=== PATIENT | female | born 1970 | race Caucasian/White ===

== ENCOUNTER 2018-06-01 10:57 | Day surgery (SDC) | payer BC ==
[~2018-06-01] VITALS: Ht 157.5 cm; Wt 93.0 kg
[~2018-06-01 10:57] MED LIST: LR 1,000 ML IV ONE; MELA10CA PO; RANI15TA PO; ZOLO25TA PO; ZYRT10CA5 PO
[2018-06-01 11:43] LABS: URINE PREG TEST NEGATIVE (NEGATIVE)
[2018-06-01] MEDS ORDERED: SCOPOLAMINE 1MG TRANSDERMAL PATCH As Ordered ONE (12:33)
[2018-06-01] MEDS ORDERED: ONDANSETRON 4MG/2ML VIAL (J2405) As Ordered ONE (12:37)
[2018-06-01] MEDS ORDERED: KETOROLAC 60 MG/2 ML VIAL (J1885) As Ordered ONE (12:37)
[2018-06-01] MEDS ORDERED: LIDOCAINE 2% INJ 100 MG/5 ML SDV (FOR ANES.) As Ordered ONE (12:37)
[2018-06-01] MEDS ORDERED: METOCLOPRAMIDE INJ 10MG/2ML VIAL (J2765) As Ordered ONE (12:37)
[2018-06-01] MEDS ORDERED: dexameTHASONE 4 MG/ML 1ML VIAL (J1100) As Ordered ONE (12:37)
[2018-06-01] MEDS ORDERED: PROPOFOL 200 MG/20 ML VIAL As Ordered ONE (12:37)
[2018-06-01] MEDS ORDERED: MIDAZOLAM INJ 2 MG/2 ML VIAL (J2250) As Ordered ONE (12:37)
[2018-06-01] MEDS ORDERED: fentaNYL 100 MCG/2 ML INJECTION (J3010) As Ordered ONE (12:37)
[2018-06-01] MEDS ORDERED: SCOPOLAMINE 1MG TRANSDERMAL PATCH TOP ONE (12:45)
[2018-06-01] MEDS ORDERED: NORCO, ANEXSIA 5/325MG TABLET (HYDROcodone/ACETAMINOPHEN) PO PRN ×2 (14:00)
[2018-06-01] MEDS ORDERED: ONDANSETRON 4MG/2ML VIAL (J2405) IV PRN (14:00)
[2018-06-01] MEDS ORDERED: IBUPROFEN 600 MG TAB PO PRN (14:00)
[2018-06-01] MEDS ORDERED: LR 1,000 ML IV SCH ×2 (14:00)
[2018-06-01] MEDS ORDERED: fentaNYL 100 MCG/2 ML INJECTION (J3010) IV PRN (14:00)
--- NOTE | 2018-06-01 14:26 | RO ---
DATE OF PROCEDURE: 06/01/2018 PREPROCEDURE DIAGNOSIS: Bleeding and pain. POSTPROCEDURE DIAGNOSIS: Bleeding and pain. PROCEDURE: Dilation and curettage, hysteroscopy, NovaSure ablation. SURGEON: Dr. Lucina Cummins. ACADEMIC COUNSELOR: None. ANESTHESIA: Laryngeal mask anesthesia (LMA). SPECIMENS: Curettings. DESCRIPTION OF PROCEDURE: Desire was brought to the operating room where sufficient LMA anesthesia was induced. She was prepped and draped and positioned in the usual sterile fashion. The cervix was grasped with a single tooth tenaculum after the bladder had been emptied. This uterus would be assessable from below should that become necessary in the future. The uterus was then sounded to 9, the cervix dilated, the hysteroscope placed and the endometrial cavity visualized. There were normal tubal ostia. I will say that the left ostium was a little bit, sort of, mid fundus but careful evaluation confirmed this was ostia not a perforation, and of course it was not actually in the middle. It was just slightly medial to the typical corner location but it was clear that this was just her anatomy. There was abundant growth of the linin of the uterus consistent with patient's report of menorrhagia but no other findings. Curettage was carried out and then the NovaSure device was placed. Measurements were confirmed. Length was 5, width 4.4 and an uncomplicated NovaSure ablation was carried out. Then the procedure ended. ESTIMATED BLOOD LOSS: Maybe 5 mL. FLUID REPLACEMENT: Crystalloid. COMPLICATIONS: None. CONDITION AND DISPOSITION: Desire tolerated the procedure well and was recovering in the recovery room in good condition.
[2018-06-01 14:40] VITALS: BP 135/78
== END 2018-06-01 15:05 | disposition home or self-care (01) ==
LOC: M SDC 10:57
PROVIDERS: ATTEND Obstetrics & Gynecology
DX: R10.2 Pelvic and perineal pain (principal); N92.4 Excessive bleeding in the premenopausal period; K21.9 Gastro-esophageal reflux disease without esophagitis; K58.8 Other irritable bowel syndrome; Z79.899 Other long term (current) drug therapy
CPT/HCPCS: 58563; 84703; 88305; J1100; J1885; J2250; J2405; J2765; J3010

== ENCOUNTER → 2022-03-22 | Outpatient (CLI) | payer BC ==
[~2022-03-22] MED LIST changes: +CETI10CH PO; -LR 1,000 ML IV ONE
== END ==
LOC: M LABSMTC 10:38
PROVIDERS: ATTEND Anesthesiology
DX: Z01.818 Encounter for other preprocedural examination (principal)

== ENCOUNTER 2022-03-25 06:40 | Day surgery (SDC) | payer BC ==
[~2022-03-25] VITALS: Ht 157.5 cm; Wt 83.8 kg
[~2022-03-25 06:40] MED LIST changes: +NS 1,000 ML IV ONE; +SIMETHICONE 40MG/0.6ML DROPS 30ML As Ordered ONE
[2022-03-25] MEDS ORDERED: propofoL 200 MG/20 ML VIAL As Ordered ONE ×3 (06:53→07:54)
[2022-03-25] MEDS ORDERED: LIDOCAINE 2% 100MG/5ML SDV (FOR ANES.) As Ordered ONE (06:53)
[2022-03-25 08:25] VITALS: BP 124/69
== END 2022-03-25 08:31 | disposition home or self-care (01) ==
LOC: M OPP 06:40
PROVIDERS: ATTEND Internal Medicine Gastroenterology
DX: Z12.11 Encounter for screening for malignant neoplasm of colon (principal); D12.3 Benign neoplasm of transverse colon; K57.30 Diverticulosis of large intestine without perforation or abscess without bleeding; K64.4 Residual hemorrhoidal skin tags; K64.8 Other hemorrhoids; Z79.899 Other long term (current) drug therapy; I34.9 Nonrheumatic mitral valve disorder, unspecified

== ENCOUNTER → 2024-12-21 | Outpatient (CLI) | payer BC ==
[~2024-12-21] MED LIST changes: -NS 1,000 ML IV ONE; -SIMETHICONE 40MG/0.6ML DROPS 30ML As Ordered ONE
== END ==
LOC: M EKG 08:00
PROVIDERS: ATTEND Internal Medicine Cardiovascular Disease
DX: I48.0 Paroxysmal atrial fibrillation (principal); R00.2 Palpitations

== ENCOUNTER → 2024-12-27 | Outpatient (CLI) | payer BC | LOC: M CARPUL 13:20 | PROVIDERS: ATTEND Internal Medicine Cardiovascular Disease | DX: I48.0 Paroxysmal atrial fibrillation (principal); R94.31 Abnormal electrocardiogram [ECG] [EKG]; R01.2 Other cardiac sounds ==

== ENCOUNTER → 2025-01-10 | Outpatient (CLI) | payer BC | LOC: M CARPUL 15:38 | PROVIDERS: ATTEND Internal Medicine Cardiovascular Disease | DX: Z01.810 Encounter for preprocedural cardiovascular examination (principal); R94.31 Abnormal electrocardiogram [ECG] [EKG]; R06.02 Shortness of breath ==